=== PATIENT | female | born 1975 | race Hispanic/Latino ===

== ENCOUNTER 2022-11-24 19:22 | Inpatient (IN) | payer SELFPAY ==
[~2022-11-24 19:22] MED LIST: Iopamidol-370 76% 500 ML MDV (1 ML CHARGE) ONE
[2022-11-24 19:55] LABS: #Basophils 0.1 thou/uL (0.0-0.2); #Eosinphils 0.2 thou/uL (0.0-0.7); #Monocytes 0.6 thou/uL (0.11-0.59); #Neutrophils 10.7 thou/uL (1.40-6.50); %Basophils 0.4 % (0.0-1.0); %Eosinophils 1.3 % (0.0-10.0); %Lymphocytes 14.2 % (21.0-51.0); %Monocytes 4.2 % (0.0-10.0); %Neutrophils 79.3 % (42.0-75.0); Mean Corpuscular HGB CONC 33.3 g/dL (32.0-36.0); Mean Corpuscular Hemoglobin 31.2 pg (27.0-31.0); Mean Corpuscular Volume 93.5 fl (78.0-98.0); Mean Platelet Volume 9.7 fL (7.4-10.4); Platelet Count 371 10x3/uL (130-400); RBC Distribution Width 12.4 % (11.5-14.5); Red Blood Cell (RBC) Count 4.17 mill/uL (4.20-5.40); White Blood Cell (WBC) Count 13.6 10x3/uL (4.8-10.8)
[2022-11-24 20:04] LABS: BHCG - Serum Negative (NEGATIVE); Pregs Control Background? CLEAR/WHITE (CLR/WHITE); Pregs Control Bar Appear? YES (CONTROL BAR)
[2022-11-24 20:16] LABS: ALT (SGPT) 35 U/L (8-55); AST (SGOT) 40 U/L (5-34); Alkaline Phosphatase 80 U/L (40-110); Anion Gap 12 mmol/L (10-20); BUN (Urea Nitrogen) 12 mg/dL (7.0-18.7); Bilirubin, Total 0.4 mg/dL (0.2-1.2); Calc. Creatinine Clearance 0 mL/min (70-130); Calcium 9.1 mg/dL (7.8-10.44); Carbon Dioxide 25 mmol/L (22-29); Chloride 106 mmol/L (98-107); Estimated GFR 93; Globulin 2.4 g/dL (2.4-3.5); Glucose 121 mg/dL (70-105); Potassium 3.4 mmol/L (3.5-5.1); Protein, Total 6.4 g/dL (6.0-8.3); Sodium 140 mmol/L (136-145)
[2022-11-24] MEDS ORDERED: Morphine 4 MG/ML VIAL ONE (20:19)
[2022-11-24] MEDS ORDERED: Bupivacaine 0.25% 10 ML VIAL ONE (20:25)
[2022-11-24] MEDS ORDERED: Ipratropium/Albuterol 3 ML NEB NEB PRN (20:43)
[2022-11-24] MEDS ORDERED: HumaLOG 300 UNITS/3 ML VIAL SC PRN (20:43)
[2022-11-24] MEDS ORDERED: Dextrose 5% in Water 1,000 ML IV PRN (20:43)
[2022-11-24] MEDS ORDERED: Glucagon 1 MG/ML KIT IM PRN (20:43)
[2022-11-24] MEDS ORDERED: Morphine 2 MG/ML VIAL SLOW IVP PRN (20:43)
[2022-11-24] MEDS ORDERED: Dextrose 50% Abboject 50 ML SYRINGE SLOW IVP PRN (20:43)
[2022-11-24 22:23] VITALS: BMI 34.9
[2022-11-24] MEDS: Sodium Chloride 0.9% 1,000 ML IV SCH (22:45)
[2022-11-24] MEDS: Famotidine/PF 20 mg/2ml Vial SLOW IVP SCH (22:46)
[2022-11-24] MEDS: Ondansetron PF 4 MG/2 ML Vial IVP PRN (22:46)
[2022-11-25] MEDS: Acetaminophen 500 MG TAB PO SCH ×2 (00:31→05:41)
[2022-11-25 05:29] LABS: #Monocytes 0.7 thou/uL (0.11-0.59); #Neutrophils 11.3 thou/uL (1.40-6.50); %Basophils 0.3 % (0.0-1.0); %Lymphocytes 7.6 % (21.0-51.0); %Neutrophils 86.7 % (42.0-75.0); Hemoglobin 12.7 g/dL (12.0-16.0); Mean Corpuscular HGB CONC 33.6 g/dL (32.0-36.0); Mean Corpuscular Volume 92.2 fl (78.0-98.0); Mean Platelet Volume 9.7 fL (7.4-10.4); Platelet Count 351 10x3/uL (130-400); RBC Distribution Width 12.7 % (11.5-14.5); White Blood Cell (WBC) Count 13.1 10x3/uL (4.8-10.8)
[2022-11-25] MEDS: Sodium Chloride 0.9% 1,000 ML IV SCH (05:40)
[2022-11-25 05:57] LABS: Anion Gap 11 mmol/L (10-20); BUN (Urea Nitrogen) 10 mg/dL (7.0-18.7); Calc. Creatinine Clearance 145 mL/min (70-130); Calcium 8.4 mg/dL (7.8-10.44); Carbon Dioxide 22 mmol/L (22-29); Chloride 109 mmol/L (98-107); Estimated GFR 108; Glucose 126 mg/dL (70-105); Potassium 3.6 mmol/L (3.5-5.1); Sodium 138 mmol/L (136-145)
[2022-11-25] MEDS: Famotidine/PF 20 mg/2ml Vial SLOW IVP SCH ×2 (09:48→21:22)
[2022-11-25] MEDS: Ondansetron PF 4 MG/2 ML Vial IVP PRN (10:26)
[2022-11-25] MEDS: Acetaminophen 325 MG TAB PO SCH ×2 (12:10→17:58)
[2022-11-25] MEDS: Acetaminophen/Codeine 30-300mg Tablet PO SCH ×2 (12:15→17:56)
[2022-11-26] MEDS: Acetaminophen/Codeine 30-300mg Tablet PO SCH ×4 (00:12→18:26)
[2022-11-26] MEDS: Acetaminophen 325 MG TAB PO SCH ×4 (00:12→18:25)
[2022-11-26] MEDS: Famotidine/PF 20 mg/2ml Vial SLOW IVP SCH ×2 (08:18→22:28)
[2022-11-26] MEDS ORDERED: fentaNYL PF 100 MCG/2 ML SYRINGE ONE (09:45)
[2022-11-26] MEDS ORDERED: Sevoflurane 250 ML INH ANEST BOTTLE ONE (09:53)
[2022-11-26] MEDS ORDERED: CEFAZOLIN 2 GM in Sodium Chloride 0.9% 100 ML IVPB SCH (10:00)
[2022-11-26] MEDS ORDERED: Sodium Chloride 0.9% 100 ML ONE (10:04)
[2022-11-26] MEDS ORDERED: CEFAZOLIN 2 GM VIAL ONE (10:04)
[2022-11-26] MEDS ORDERED: PROPOFOL 200 MG/20 ML VIAL ONE (10:17)
[2022-11-26] MEDS ORDERED: Lidocaine 1% PF 5 ML VIAL ONE (10:17)
[2022-11-26] MEDS ORDERED: Ondansetron PF 4 MG/2 ML Vial ONE (10:17)
[2022-11-26] MEDS ORDERED: PHENYLEPHRINE-NS 100 MCG/ML 10 ML SYRINGE ONE (10:17)
[2022-11-26] MEDS ORDERED: Dexamethasone 20 MG/5 ML VIAL ONE (10:17)
[2022-11-26] MEDS ORDERED: Ketorolac Tromethamine 30 MG/ML VIAL ONE (10:17)
[2022-11-26] MEDS ORDERED: PACU-Morphine 4MG/ML VIAL SLOW IVP PRN (10:54)
[2022-11-26] MEDS ORDERED: HYDROmorphone 2 MG/ML VIAL SLOW IVP PRN (10:54)
[2022-11-26] MEDS ORDERED: Ondansetron HCl/PF 4 MG/2 ML Vial IVP PRN (10:54)
[2022-11-26] MEDS ORDERED: Morphine Sulfate 2 MG/ML SYRINGE SLOW IVP PRN (10:54)
[2022-11-26] MEDS ORDERED: Promethazine HCl 25 MG/ML VIAL IM PRN (10:54)
[2022-11-26] MEDS ORDERED: fentaNYL 50 mcg/mL 1 mL Vial ONE (12:02)
[2022-11-26] MEDS: CEFAZOLIN 2 GM in Sodium Chloride 0.9% 100 ML IVPB SCH (18:28)
[2022-11-27] MEDS: Acetaminophen 325 MG TAB PO SCH ×5 (01:23→23:50)
[2022-11-27] MEDS: Acetaminophen/Codeine 30-300mg Tablet PO SCH ×5 (01:23→22:58)
[2022-11-27] MEDS: CEFAZOLIN 2 GM in Sodium Chloride 0.9% 100 ML IVPB SCH (01:24)
[2022-11-27] MEDS ORDERED: Scopolamine 1.5 mg/72 hour Patch TD SCH (09:00)
[2022-11-27] MEDS: Famotidine/PF 20 mg/2ml Vial SLOW IVP SCH ×2 (09:03→22:58)
[2022-11-27] MEDS ORDERED: Ketorolac Tromethamine 30 MG/ML VIAL IVP SCH (10:15)
[2022-11-27] MEDS ORDERED: Cyclobenzaprine 10 MG TAB PO PRN (10:15)
[2022-11-27] MEDS: Ketorolac Tromethamine 30 MG/ML VIAL IVP SCH ×3 (11:56→22:59)
[2022-11-27] MEDS: Gabapentin 300 MG CAP PO SCH ×2 (16:47→22:57)
[2022-11-28] MEDS: Acetaminophen 325 MG TAB PO SCH ×2 (05:41→12:28)
[2022-11-28] MEDS: Acetaminophen/Codeine 30-300mg Tablet PO SCH ×2 (05:41→12:28)
[2022-11-28] MEDS: Ketorolac Tromethamine 30 MG/ML VIAL IVP SCH ×2 (06:16→12:29)
[2022-11-28] MEDS: Gabapentin 300 MG CAP PO SCH ×2 (08:11→15:45)
[2022-11-28] MEDS: Famotidine/PF 20 mg/2ml Vial SLOW IVP SCH (08:12)
[2022-11-28] MEDS ORDERED: Ibuprofen 800 MG TAB PO PRN (13:25)
[2022-11-28] MEDS ORDERED: Ibuprofen 200 MG TAB PO PRN (13:31)
[2022-11-28 16:39] VITALS: BP 121/80; TEMP 98.4
== END 2022-11-28 17:37 | disposition home or self-care (01) | DRG 512 ==
LOC: ERS 19:22 → 2SE 20:47 → SURG B 11-25 15:56
PROVIDERS: ADMIT Surgery; ATTEND Surgery
PROC: 0PSH04Z Reposition Right Radius with Internal Fixation Device, Open Approach (ICD-10-PCS; principal; 2022-11-26)
DX: S52.501A Unspecified fracture of the lower end of right radius, initial encounter for closed fracture (principal); E11.9 Type 2 diabetes mellitus without complications; W20.1XXA Struck by object due to collapse of building, initial encounter; E87.5 Hyperkalemia; S62.001A Unspecified fracture of navicular [scaphoid] bone of right wrist, initial encounter for closed fracture; Y92.89 Other specified places as the place of occurrence of the external cause
CPT/HCPCS: 25605; 36415; 36416; 70450; 71045; 71260; 72125; 72170; 74177; 80048; 80053; 84703; 85025; 93005; 96374; C1713; G0390; J1100; J1885; J2270; J2272; J2405; J2704; J3010; J3490; J7050; Q9967; S0020; S0028

== ENCOUNTER 2022-12-15 09:48 | Emergency (ER) | payer OTHER ==
[2022-12-15] MEDS ORDERED: HYDROcodone/Acetaminophen 5/325 mg Tablet ONE (10:06)
== END 2022-12-15 10:56 | disposition home or self-care (01) ==
LOC: ERS 09:48
DX: S52.501A Unspecified fracture of the lower end of right radius, initial encounter for closed fracture (principal); V49.9XXA Car occupant (driver) (passenger) injured in unspecified traffic accident, initial encounter
CPT/HCPCS: 99283

== ENCOUNTER 2023-11-16 07:00 | Outpatient (CLI) | payer OTHER | END 2023-11-16 07:01 | disposition home or self-care (01) | LOC: BICULT 07:00 | PROVIDERS: ATTEND Nurse Practitioner Family | DX: F41.9 Anxiety disorder, unspecified (principal); N83.202 Unspecified ovarian cyst, left side; N83.201 Unspecified ovarian cyst, right side | CPT/HCPCS: 76856 ==